=== PATIENT | male | born 1985 | race African-American/Black ===

== ENCOUNTER 2018-02-16 13:45 | Inpatient (IN) | payer OTHER ==
[2018-02-16 14:58] VITALS: BMI 17.2
--- NOTE | 2018-02-16 16:27 | HP ---
CIWA Score Nausea/Vomitin-No Nausea/No Vomiting Muscle Tremors: 4-Moderate,w/Arms Extend Anxiety: 2 Agitation: 4-Moderately Restless Paroxysmal Sweats: 3 (Facial perspiration w/o beading) Orientation: 0-Oriented Tacttile Disturbances: 0-None Auditory Disturbances: 0-None Visual Disturbances: 0-None (Have had hallucinations in past when in withdrawal) Headache: 0-None Present CIWA-Ar Total Score: 13 - Admission Criteria OASAS Guidelines: Admission for Medically Managed Detox: Requires at least one of the followin. CIWA greater than 12 2. Seizures within the past 24 hours 3. Delirium tremens within the past 24 hours 4. Hallucinations within the past 24 hours 5. Acute intervention needed for co occurring medical disorder 6. Acute intervention needed for co occurring psychiatric disorder 7. Severe withdrawal that cannot be handled at a lower level of care (continued vomiting, continued diarrhea, abnormal vital signs) requiring intravenous medication and/or fluids 8. Patient presents the following: CIWA greater than 12 Admission Criteria Met: Admission criteria met Admission [facility] Chief Complaint: I am detoxing from alcohol. Allergies/Adverse Reactions: Allergies Allergy/AdvReac Type Severity Reaction Status Date / Time No Known Allergies Allergy Verified 02/16/18 16:01 History of Present Illness: States wants to start fresh. Alcohol use since age 14. Marijuana use since age 14. Nicotine use since age 14. Denies seizures/blackouts. Hx 1 overdose year ago. Longest length of sobriety 2-3 weeks while in rehab. No sobriety when not in a facility. Hx: Anemia, eczema, States nasal trauma. Denies nose bleeds or difficulty breathing. PDMP - negative Exam Limitations: No Limitations - Ebola screening Have you traveled outside of the country in the last 21 days: No Have you had contact with anyone from an Ebola affected area: No Have you been sick,other than usual withdrawal symptoms: No Do you have a fever: No - Review of Systems Constitutional: Changes in sleep (Difficulty fallig asleep) EENT: reports: Blurred Vision Respiratory: reports: No Symptoms reported Cardiac: reports: No Symptoms Reported GI: reports: Poor Appetite : reports: No Symptoms Reported Musculoskeletal: reports: No Symptoms Reported Integumentary: reports: Rash (Eczema rashes all over body but worse on an arms and legs) Neuro: reports: Tremors Endocrine: reports: No Symptoms Reported Hematology: reports: No Symptoms Reported Psychiatric: reports: Orientated x3, Agitated, Anxious, Depressed ( Denies thoughts of harming self or others) Patient History - Patient Medical History Hx Anemia: Yes Hx Asthma: No Hx Chronic Obstructive Pulmonary Disease (COPD): No Hx Cancer: No Hx Cardiac Disorders: No Hx Congestive Heart Failure: No Hx Hypertension: No Hx Hypercholesterolemia: No Hx Pacemaker: No HX Cerebrovascular Accident: No Hx Seizures: No Hx Dementia: No Hx Diabetes: No Hx Gastrointestinal Disorders: No Hx Liver Disease: No Hx Genitourinary Disorders: No Hx Sexually Transmitted Disorders: Yes (Hx Gonorrhea in early - Tx'd) Hx Renal Disease (ESRD): No Hx Thyroid Disease: No Hx Human Immunodeficiency Virus (HIV): No (- 2017) Hx Hepatitis C: No Hx Depression: Yes ( Denies thoughts of harming self or others) Hx Suicide Attempt: No Hx Bipolar Disorder: No Hx Schizophrenia: No - Patient Surgical History Past Surgical History: No Hx Neurologic Surgery: No Hx Cataract Extraction: No Hx Cardiac Surgery: No Hx Lung Surgery: No Hx Breast Surgery: No Hx Breast Biopsy: No Hx Abdominal Surgery: No Hx Appendectomy: No Hx Cholecystectomy: No Hx Genitourinary Surgery: No Hx Section: No Hx Orthopedic Surgery: No Hx Hysterectomy: No Anesthesia Reaction: No - PPD History Previous Implant?: Yes Documented Results: Negative w/proof Implanted On Prior R Admission?: Yes Date: 09/27/17 Results: 0 mm PPD to be Administered?: No - Smoking Cessation Smoking history: Current every day smoker Have you smoked in the past 12 months: Yes Aproximately how many cigarettes per day: 12 Hx Chewing Tobacco Use: No Initiated information on smoking cessation: Yes 'Breaking Loose' booklet given: 02/16/18 - Substance & Tx. History Hx Alcohol Use: Yes Hx Substance Use: Yes Substance Use Type: Alcohol, Marijuana Hx Substance Use Treatment: Yes (detox, ) - Substances Abused Alcohol Route: Oral Frequency: Daily Amount used: 2-5 25 oz cans Age of first use: 14 Date of Last Use: 02/16/18 Marijuana/Hashish Route: Smoking Frequency: 1-3 times last 30 days Amount used: 1-2 blunts Age of first use: 14 Date of Last Use: 02/09/18 Family Disease History - Family Disease History Family Disease History: Other: Mother (schizo) Admission Physical Exam [facility] - Vital Signs Vital Signs: Vital Signs - 24 hr 02/16/18 14:55 Temperature 98.7 F Pulse Rate 93 H Respiratory 19 Rate Blood Pressure 149/100 - Physical General Appearance: Yes: Mild Distress, Alcohol on Breath, Tremorous, Sweating, Anxious HEENTM: Yes: EOMI, Normal Voice, MELISSA, Pharynx Normal, Lessions (Superficial open laceration nasal on bridge of nose approx 1 cm without discharge.) Respiratory: Yes: Chest Non-Tender, Lungs Clear, Normal Breath Sounds, No Respiratory Distress Neck: Yes: No masses,lesions,Nodules, Supple Breast: Yes: Breast Exam Deferred Cardiology: Yes: Regular Rhythm, Regular Rate, S1, S2 Abdominal: Yes: Non Tender, Flat, Soft, Increased Bowel Sounds Genitourinary: Yes: Within Normal Limits Back: Yes: Normal Inspection Musculoskeletal: Yes: full range of Motion, Gait Steady Extremities: Yes: Normal Capillary Refill, Normal Inspection, Normal Range of Motion, Non-Tender, Tremors (Tremors of hands when arms elevated) 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: 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: 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 NML intact, Fully Oriented, Alert, Motor Strength 5/5, Normal Mood/Affect, Normal Response Integumentary: Yes: Normal Color, Dry, Warm, Other (Generalized dry leathery scan w/ scratched papular lesions predominantly on arms and legs and less on back.) Lymphatic: Yes: Within Normal Limits - Diagnostic (1) Alcohol dependence with uncomplicated withdrawal Current Visit: Yes Status: Acute (2) Atopic dermatitis Current Visit: Yes Status: Chronic Qualifiers: Atopic dermatitis type: unspecified Qualified Code(s): L20.9 - Atopic dermatitis, unspecified Comment: Patient states thinks skin rash is eczema. (3) Low body mass index (BMI) Current Visit: Yes Status: Chronic (4) Nicotine dependence, cigarettes, uncomplicated Current Visit: Yes Status: Chronic (5) Laceration Current Visit: Yes Status: Acute Comment: Bridge of nose. Cleared for Admission [facility] - Detox or Rehab [facility] Level of Care: Medically Managed Detox Regimen/Protocol: Librium [facility] Breath Alcohol Content Breath Alcohol Content: 0 Urine Drug Screen - Results Drug Screen Negative: No Urine Drug Screen Results: THC-Marijuana
[2018-02-16] MEDS ORDERED: LOPERAMIDE HCL 2 MG CAPSULE PO PRN (17:08)
[2018-02-16] MEDS ORDERED: MAGNESIUM HYDROX 2400MG/30ML ORAL SUSPENSION 30 ML CUP PO PRN (17:08)
[2018-02-16] MEDS ORDERED: chlordiazePOXIDE HCL 25 MG CAPSULE PO PRN (17:08)
[2018-02-16] MEDS ORDERED: MAG HYDROX/AL HYDROX/SIMETH 30 ML UNIT-DOSE CUP PO PRN (17:08)
[2018-02-16] MEDS ORDERED: IBUPROFEN 400 MG TABLET (FP) PO PRN (17:08)
[2018-02-16] MEDS ORDERED: ACETAMINOPHEN 325 MG TABLET (FP) PO PRN (17:08)
[2018-02-16] MEDS ORDERED: MENTHOL/PHENOL 1 EACH UD MM PRN (17:08)
[2018-02-16] MEDS ORDERED: MAGNESIUM CITRATE 300 ML BOTTLE PO PRN (17:08)
[2018-02-16] MEDS ORDERED: NICOTINE POLACRILEX 2 MG GUM BC PRN (17:08)
[2018-02-16] MEDS ORDERED: chlordiazePOXIDE HCL 25 MG CAPSULE PO ONE (18:15)
[2018-02-16] MEDS ORDERED: MELATONIN 5 MG TABLETS PO PRN (22:00)
[2018-02-16] MEDS: FERROUS SO4 325 MG TABLET (FP) PO SCH (22:51)
[2018-02-16] MEDS: THIAMINE HCL 100 MG TABLET (FP) PO SCH (22:51)
[2018-02-16] MEDS: chlordiazePOXIDE HCL 25 MG CAPSULE PO SCH (22:51)
[2018-02-16] MEDS: BACITRACIN 0.9 GM PACKET TP SCH (22:51)
[2018-02-17 02:11] LABS: URINE APPEARANCE CLEAR; URINE BILIRUBIN NEGATIVE (<2.0 mg/dL); URINE COLOR STRAW; URINE GLUCOSE (UA) NEGATIVE (NEGATIVE); URINE KETONE NEGATIVE (NEGATIVE); URINE LEUK ESTERASE NEGATIVE (NEGATIVE); URINE NITRITE NEGATIVE (NEGATIVE); URINE PROTEIN NEGATIVE (NEGATIVE); URINE UROBILINOGEN NEGATIVE mg/dL (0.2-1.0)
[2018-02-17] MEDS: chlordiazePOXIDE HCL 25 MG CAPSULE PO SCH ×4 (05:42→22:13)
[2018-02-17] MEDS: PRENATAL VITAMINS W/ FOLIC ACID TABLET (FP) PO SCH (10:03)
[2018-02-17] MEDS: BACITRACIN 0.9 GM PACKET TP SCH ×2 (10:03→22:12)
[2018-02-17] MEDS: NICOTINE 21 MG/24 HOURS TOPICAL PATCH TD SCH (10:04)
[2018-02-17] MEDS: FERROUS SO4 325 MG TABLET (FP) PO SCH ×2 (10:06→22:13)
[2018-02-17 10:26] LABS: HEMATOCRIT 32.9 % (35.4-49); HEMOGLOBIN 11.8 GM/dL (11.7-16.9); MCH 34.7 pg (25.7-33.7); MCHC 35.8 g/dl (32.0-35.9); MEAN CELL VOLUME 96.8 fl (80-96); MEAN PLT VOLUME 8.1 fl (7.5-11.1); PLATELET COUNT 287 K/MM3 (134-434); RDW 16.5 % (11.9-15.9); WHITE BLOOD COUNT 4.3 K/mm3 (4.0-10.0)
[2018-02-17 10:34] LABS: ALBUMIN 3.2 g/dl (3.4-5.0); ALK PHOS 250 U/L (45-117); ANION GAP 11 MMOL/L (8-16); BILIRUBIN,TOTAL 1.3 mg/dL (0.2-1); BLOOD UREA NITROGEN 15 mg/dL (7-18); CALCIUM 8.5 mg/dL (8.5-10.1); CHLORIDE 103 mmol/L (98-107); CO2 25 mmol/L (21-32); CREATININE 1.2 mg/dL (0.55-1.3); GLUCOSE,RANDOM 71 mg/dL (74-106); POTASSIUM 4.2 mmol/L (3.5-5.1); SGOT/AST 505 U/L (15-37); SGPT/ALT 249 U/L (13-61); SODIUM 140 mmol/L (136-145); TOT PROT 7.3 g/dl (6.4-8.2)
[2018-02-17] MEDS: TRIAMCINOLONE ACET 0.1% CREAM 15 GM TUBE TP SCH ×2 (12:43→22:12)
--- NOTE | 2018-02-17 13:25 | PN ---
[facility] CIWA - CIWA Score Nausea/Vomitin Muscle Tremors: 4-Moderate,w/Arms Extend Anxiety: 4-Mod. Anxious/Guarded Agitation: 3 Paroxysmal Sweats: 3 Orientation: 0-Oriented Tacttile Disturbances: 1-Very Mild Itch/Numbness Auditory Disturbances: 0-None Visual Disturbances: 0-None Headache: 0-None Present CIWA-Ar Total Score: 17 [facility] Progress Note (SOAP) Subjective: Anxious, restless, sweating, interrupted sleep. Patient c/o eczema on arms and requesting medication. Objective: 02/17/18 13:17 Last Vital Signs Temp Pulse Resp BP Pulse Ox 96.6 F L 77 18 140/93 02/17/18 09:13 02/17/18 09:13 02/17/18 09:13 02/17/18 09:13 Elevated b/p noted (patient denies htn) Laboratory Tests 02/16/18 02/17/18 02/17/18 22:44 07:50 07:50 WBC 4.3 RBC 3.40 L Hgb 11.8 Hct 32.9 L MCV 96.8 H MCH 34.7 H MCHC 35.8 RDW 16.5 H Plt Count 287 MPV 8.1 Sodium 140 Potassium 4.2 Chloride 103 Carbon Dioxide 25 Anion Gap 11 BUN 15 Creatinine 1.2 Creat Clearance w eGFR > 60 Random Glucose 71 L Calcium 8.5 Total Bilirubin 1.3 H AST 505 H ALT 249 H Alkaline Phosphatase 250 H Total Protein 7.3 Albumin 3.2 L Urine Color Straw Urine Appearance Clear Urine pH 5.0 D Ur Specific [place] 1.005 L Urine Protein Negative Urine Glucose (UA) Negative Urine Ketones Negative Urine Blood Negative Urine Nitrite Negative Urine Bilirubin Negative Urine Urobilinogen Negative Ur Leukocyte Esterase Negative RPR Titer 02/17/18 07:50 WBC RBC Hgb Hct MCV MCH MCHC RDW Plt Count MPV Sodium Potassium Chloride Carbon Dioxide Anion Gap BUN Creatinine Creat Clearance w eGFR Random Glucose Calcium Total Bilirubin AST ALT Alkaline Phosphatase Total Protein Albumin Urine Color Urine Appearance Urine pH Ur Specific [place] Urine Protein Urine Glucose (UA) Urine Ketones Urine Blood Urine Nitrite Urine Bilirubin Urine Urobilinogen Ur Leukocyte Esterase RPR Titer Nonreactive Labs reviewed: total bilirubin 1.3, AST 505, ALT 249 Assessment: 02/17/18 13:20 Withdrawal symptoms Noted with elevated b/p and elevated LFTs Plan: Continue detox Encouraged PO water intake Elevated blood pressure: could be r/t withdrawal, start clonidine 0.1mg PO q8h prn if b/p > 140/90 Elevated LFTs: repeat hepatic panel
[2018-02-17] MEDS ORDERED: cloNIDine HCL 0.1 MG TABLET PO PRN (13:31)
[2018-02-17] MEDS: THIAMINE HCL 100 MG TABLET (FP) PO SCH (22:13)
[2018-02-17] MEDS: AMMONIUM LACTATE 12% LOTION 225 GM BOTTLE TP SCH (22:13)
[2018-02-18] MEDS: chlordiazePOXIDE HCL 25 MG CAPSULE PO SCH ×3 (05:38→18:23)
[2018-02-18 10:19] LABS: ALBUMIN 3.1 g/dl (3.4-5.0); BILIRUBIN,DIRECT 0.8 mg/dL (0.0-0.2); BILIRUBIN,TOTAL 1.1 mg/dL (0.2-1); TOT PROT 7.4 g/dl (6.4-8.2)
[2018-02-18] MEDS: PRENATAL VITAMINS W/ FOLIC ACID TABLET (FP) PO SCH (10:37)
[2018-02-18] MEDS: BACITRACIN 0.9 GM PACKET TP SCH ×2 (10:37→22:49)
[2018-02-18] MEDS: FERROUS SO4 325 MG TABLET (FP) PO SCH ×2 (10:37→22:50)
[2018-02-18] MEDS: TRIAMCINOLONE ACET 0.1% CREAM 15 GM TUBE TP SCH ×2 (10:38→22:49)
[2018-02-18] MEDS: NICOTINE 21 MG/24 HOURS TOPICAL PATCH TD SCH (10:39)
[2018-02-18] MEDS: AMMONIUM LACTATE 12% LOTION 225 GM BOTTLE TP SCH ×2 (10:40→23:16)
--- NOTE | 2018-02-18 13:22 | PN ---
[facility] CIWA - CIWA Score Nausea/Vomitin-No Nausea/No Vomiting Muscle Tremors: None Anxiety: 4-Mod. Anxious/Guarded Agitation: 4-Moderately Restless Paroxysmal Sweats: No Perspiration Orientation: 0-Oriented Tacttile Disturbances: 0-None Auditory Disturbances: 0-None Visual Disturbances: 0-None Headache: 0-None Present CIWA-Ar Total Score: 8 BHS Progress Note (SOAP) Subjective: PATIENT IRRITABLE/ANXIOUS. C/O INTERRUPTED SLEEP. 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 Objective: 02/18/18 13:20 Vital Signs Temperature 97.1 F L 02/18/18 06:24 Pulse Rate 50 L 02/18/18 06:24 Respiratory Rate 18 02/18/18 06:24 Blood Pressure 119/74 02/18/18 06:24 O2 Sat by Pulse Oximetry (%) Laboratory Tests 02/16/18 02/17/18 02/17/18 22:44 07:50 07:50 WBC 4.3 RBC 3.40 L Hgb 11.8 Hct 32.9 L MCV 96.8 H MCH 34.7 H MCHC 35.8 RDW 16.5 H Plt Count 287 MPV 8.1 Sodium 140 Potassium 4.2 Chloride 103 Carbon Dioxide 25 Anion Gap 11 BUN 15 Creatinine 1.2 Creat Clearance w eGFR > 60 Random Glucose 71 L Calcium 8.5 Total Bilirubin 1.3 H Direct Bilirubin AST 505 H ALT 249 H Alkaline Phosphatase 250 H Total Protein 7.3 Albumin 3.2 L Urine Color Straw Urine Appearance Clear Urine pH 5.0 D Ur Specific [place] 1.005 L Urine Protein Negative Urine Glucose (UA) Negative Urine Ketones Negative Urine Blood Negative Urine Nitrite Negative Urine Bilirubin Negative Urine Urobilinogen Negative Ur Leukocyte Esterase Negative RPR Titer 02/17/18 02/18/18 07:50 07:00 WBC RBC Hgb Hct MCV MCH MCHC RDW Plt Count MPV Sodium Potassium Chloride Carbon Dioxide Anion Gap BUN Creatinine Creat Clearance w eGFR Random Glucose Calcium Total Bilirubin 1.1 H Direct Bilirubin 0.8 H AST 332 H ALT 222 H Alkaline Phosphatase 281 H Total Protein 7.4 Albumin 3.1 L Urine Color Urine Appearance Urine pH Ur Specific [place] Urine Protein Urine Glucose (UA) Urine Ketones Urine Blood Urine Nitrite Urine Bilirubin Urine Urobilinogen Ur Leukocyte Esterase RPR Titer Nonreactive PE: ALERT AND ORIENTED X 3 ANXIOUS AND IRRITABLE IGNORED QUESTIONS DURING EXAM Assessment: 02/18/18 13:21 WITHDRAWAL SX Plan: CONTINUE DETOX REGIMEN ENCOURAGE ORAL FLUIDS CONTINUE TO MONITOR REPEAT LFTS IN AM
--- NOTE | 2018-02-18 14:04 | CONSULT ---
[facility] Psychiatric Consult - Data Date of interview: 02/18/18 Admission source: [facility] Identifying data: Readmission to [facility] for this 32 y/o AA male seeking detoxification treatment on for alcohol + cannabis dependence. Patient is single, no children, homeless, unemployed and supported on welfare. Substance Abuse History: Confirmed by the patient in this interview. Details in current [facility] report : Smoking history: Current every day smoker. Have you smoked in the past 12 months: Yes. Aproximately how many cigarettes per day: 12. Hx Chewing Tobacco Use: No. Initiated information on smoking cessation: Yes. 'Breaking Loose' booklet given: 02/16/18. - Substance & Tx. History. Hx Alcohol Use: Yes. Hx Substance Use: Yes. Substance Use Type: Alcohol, Marijuana. Hx Substance Use Treatment: Yes (detox, ). - Substances Abused. * * Alcohol. Route: Oral. Frequency: Daily. Amount used: 2-5 25 oz cans. Age of first use: 14. Date of Last Use: 02/16/18. Marijuana/Hashish. Route: Smoking. Frequency: 1-3 times last 30 days. Amount used: 1-2 blunts. Age of first use: 14. Date of Last Use: 02/09/18 Medical History: Anemia, eczema and a history of treatment for gonorrhea. Psychiatric History: Patient admits to a history of multiple psychiatric hospitalizations ([facility], [facility]). Most recent hospitalization was in [facility]. Mr Magallon indicates that he is diagnosed with Bipolar Disorder. Has been prescribed olanzapine 10 mg/day. Self- report of sub-optimal adherence to medications + OPD appointments. Patient is currently followed at the [facility] in the [place]. [place] history of suicide attempts. Physical/Sexual Abuse/Trauma History: Patient denies. Additional Comment: Urine Drug Screen Results: THC-Marijuana. Noted. Mental Status Exam - Mental Status Exam Alert and Oriented to: Time, Place, Person Cognitive Function: Good Patient Appearance: Unkempt, Disheveled Mood: Nervous, Withdrawn, Anxious Affect: Constricted Patient Behavior: Fatigued, Appropriate, Cooperative Speech Pattern: Clear Voice Loudness: Normal Thought Process: Goal Oriented Thought Disorder: Not Present Hallucinations: Denies Suicidal Ideation: Denies Insight/Judgement: Poor Sleep: Poorly, Difficulty falling asleep Appetite: Good Muscle strength/Tone: Normal Gait/Station: Normal Psychiatric Findings - Problem List ([place] 1, 2,3) (1) Alcohol dependence with uncomplicated withdrawal Current Visit: Yes Status: Acute (2) Cannabis dependence Current Visit: Yes Status: Acute (3) Nicotine dependence, cigarettes, uncomplicated Current Visit: Yes Status: Acute (4) Bipolar disorder Current Visit: No Status: Chronic Qualifiers: Active/Remission status: remission status unspecified Qualified Code(s): F31.9 - Bipolar disorder, unspecified (5) Insomnia Current Visit: Yes Status: Acute - Initial Treatment Plan Initial Treatment Plan: Psychoeducation. Sleep hygiene. Detoxification. Olanzapine 5 mg po hs (patient's specific request). patient is MADE AWARE of the risk of aggravation of diabetes mellitus. Mr Magallon insists on resuming that medication (issue of good tolerability + efficacy). Observation.
[2018-02-18] MEDS: chlordiazePOXIDE 5 MG CAPSULE PO SCH (22:50)
[2018-02-18] MEDS: OLANZapine 5 MG TABLET PO SCH (22:50)
[2018-02-18] MEDS: THIAMINE HCL 100 MG TABLET (FP) PO SCH (22:50)
[2018-02-19] MEDS: chlordiazePOXIDE 5 MG CAPSULE PO SCH ×3 (05:48→17:21)
[2018-02-19] MEDS: PRENATAL VITAMINS W/ FOLIC ACID TABLET (FP) PO SCH (10:26)
[2018-02-19] MEDS: FERROUS SO4 325 MG TABLET (FP) PO SCH ×2 (10:26→22:20)
[2018-02-19] MEDS: TRIAMCINOLONE ACET 0.1% CREAM 15 GM TUBE TP SCH ×2 (10:26→22:20)
[2018-02-19] MEDS: BACITRACIN 0.9 GM PACKET TP SCH ×2 (10:26→22:20)
[2018-02-19] MEDS: AMMONIUM LACTATE 12% LOTION 225 GM BOTTLE TP SCH ×2 (10:26→22:34)
[2018-02-19] MEDS: NICOTINE 21 MG/24 HOURS TOPICAL PATCH TD SCH (10:28)
[2018-02-19 12:26] LABS: ALBUMIN 2.5 g/dl (3.4-5.0); BILIRUBIN,DIRECT 0.5 mg/dL (0.0-0.2); BILIRUBIN,TOTAL 0.7 mg/dL (0.2-1)
--- NOTE | 2018-02-19 15:14 | PN ---
[facility] Progress Note (SOAP) Subjective: "I am ok" Objective: 02/19/18 15:08 In bed answering questions reluctantly No acute distress noted Vital Signs Temperature 95.9 F L 02/19/18 14:13 Pulse Rate 95 H 02/19/18 14:13 Respiratory Rate 18 02/19/18 14:13 Blood Pressure 113/84 02/19/18 14:13 O2 Sat by Pulse Oximetry (%) Assessment: 02/19/18 15:10 withdrawal sxs Plan: continue detox For d/c in a.m
[2018-02-19] MEDS: chlordiazePOXIDE HCL 10 MG CAPSULE PO SCH (22:20)
[2018-02-19] MEDS: OLANZapine 5 MG TABLET PO SCH (22:20)
[2018-02-19] MEDS: THIAMINE HCL 100 MG TABLET (FP) PO SCH (22:20)
[2018-02-20] MEDS: chlordiazePOXIDE HCL 10 MG CAPSULE PO SCH (05:48)
[2018-02-20 06:42] VITALS: BP 120/76; PULSE 72; TEMP 96.9
--- NOTE | 2018-02-20 12:10 | DS ---
[facility] Detox Discharge Summary Admission Date: 02/16/18 Discharge Date: 02/20/18 - History Additional Comments: Patient completed detox safely. Patient to follow up with his PCP within 1 week. Pertinent Past History: Eczema Alcohol dependence Nicotine dependence Anemia - Physical Exam Results Vital Signs: Vital Signs Temperature 96.9 F L 02/20/18 06:41 Pulse Rate 72 02/20/18 06:41 Respiratory Rate 16 02/20/18 06:41 Blood Pressure 120/76 02/20/18 06:41 O2 Sat by Pulse Oximetry (%) Pertinent Admission Physical Exam Findings: Withdrawal symptoms Laboratory Tests 02/16/18 02/17/18 02/17/18 22:44 07:50 07:50 WBC 4.3 RBC 3.40 L Hgb 11.8 Hct 32.9 L MCV 96.8 H MCH 34.7 H MCHC 35.8 RDW 16.5 H Plt Count 287 MPV 8.1 Sodium 140 Potassium 4.2 Chloride 103 Carbon Dioxide 25 Anion Gap 11 BUN 15 Creatinine 1.2 Creat Clearance w eGFR > 60 Random Glucose 71 L Calcium 8.5 Total Bilirubin 1.3 H Direct Bilirubin AST 505 H ALT 249 H Alkaline Phosphatase 250 H Total Protein 7.3 Albumin 3.2 L Urine Color Straw Urine Appearance Clear Urine pH 5.0 D Ur Specific [place] 1.005 L Urine Protein Negative Urine Glucose (UA) Negative Urine Ketones Negative Urine Blood Negative Urine Nitrite Negative Urine Bilirubin Negative Urine Urobilinogen Negative Ur Leukocyte Esterase Negative RPR Titer 02/17/18 02/18/18 02/19/18 07:50 07:00 07:50 WBC RBC Hgb Hct MCV MCH MCHC RDW Plt Count MPV Sodium Potassium Chloride Carbon Dioxide Anion Gap BUN Creatinine Creat Clearance w eGFR Random Glucose Calcium Total Bilirubin 1.1 H 0.7 Direct Bilirubin 0.8 H 0.5 H AST 332 H 165 H ALT 222 H 144 H Alkaline Phosphatase 281 H 233 H Total Protein 7.4 6.0 L Albumin 3.1 L 2.5 L Urine Color Urine Appearance Urine pH Ur Specific [place] Urine Protein Urine Glucose (UA) Urine Ketones Urine Blood Urine Nitrite Urine Bilirubin Urine Urobilinogen Ur Leukocyte Esterase RPR Titer Nonreactive Labs reviewed: elevated LFTs (trending downwards, could be r/t alcohol dependence), follow up with PCP for monitoring - Treatment Hospital Course: Detox Protocol Followed, Detoxed Safely, Responded well, Discharged Condition Good - Medication Discharge Medications: Ambulatory Orders Olanzapine 10 mg PO DAILY #30 tablet 09/26/17 Ferrous Sulfate [Iron] 325 mg PO BID 02/16/18 - Diagnosis (1) Elevated blood-pressure reading, without diagnosis of hypertension Status: Resolved (2) Elevated LFTs Status: Acute (3) Eczema Status: Acute (4) Alcohol dependence with uncomplicated withdrawal Status: Acute (5) Laceration Status: Acute (6) Nicotine dependence, cigarettes, uncomplicated Status: Acute (7) Anemia Status: Chronic Qualifiers: Anemia type: unspecified type Qualified Code(s): D64.9 - Anemia, unspecified - AMA Did Patient Leave Against Medical Advice: No (F/U with PCP within 1 week)
== END 2018-02-20 09:00 | disposition home or self-care (01) | DRG 775 ==
LOC: YASAS 13:45 → Y3N 17:53
PROVIDERS: ADMIT Neuromusculoskeletal Medicine & OMM; ATTEND Neuromusculoskeletal Medicine & OMM
PROC: HZ2ZZZZ Detoxification Services for Substance Abuse Treatment (ICD-10-PCS; principal; 2018-02-16)
DX: F10.230 Alcohol dependence with withdrawal, uncomplicated (principal); F12.20 Cannabis dependence, uncomplicated; F17.210 Nicotine dependence, cigarettes, uncomplicated; F19.280 Other psychoactive substance dependence with psychoactive substance-induced anxiety disorder; F19.282 Other psychoactive substance dependence with psychoactive substance-induced sleep disorder; F31.9 Bipolar disorder, unspecified; G47.00 Insomnia, unspecified; D64.9 Anemia, unspecified; L20.9 Atopic dermatitis, unspecified; L30.9 Dermatitis, unspecified; R94.5 Abnormal results of liver function studies; R63.6 Underweight; Z68.1 Body mass index [BMI] 19.9 or less, adult; Z86.19 Personal history of other infectious and parasitic diseases; S01.21XA Laceration without foreign body of nose, initial encounter; X58.XXXA Exposure to other specified factors, initial encounter; Y93.9 Activity, unspecified; Y92.9 Unspecified place or not applicable; Y99.8 Other external cause status
CPT/HCPCS: 36415; 80053; 80076; 81003; 85027; 86593; J0735